=== PATIENT | female | born 1955 | race Two or more races ===

== ENCOUNTER 2024-03-25 21:06 | Inpatient (IN) | payer OTHER ==
[2024-03-25 22:11] VITALS: BMI 35.2
[2024-03-26] MEDS ORDERED: BENZOCAINE/MENTHOL (CHLORASEPTIC ) LOZENGE MM PRN (00:49)
[2024-03-26] MEDS ORDERED: MAGNESIUM HYDROX 2400MG/30ML ORAL SUSPENSION 30 ML CUP PO PRN (00:49)
[2024-03-26] MEDS ORDERED: NICOTINE POLACRILEX 2 MG GUM BUC PRN (00:49)
[2024-03-26] MEDS ORDERED: NALOXONE HCL (KLOXXADO) 8 MG SPRAY NS PRN (00:49)
[2024-03-26] MEDS ORDERED: ACETAMINOPHEN 325 MG TABLET (FP) PO PRN (00:49)
[2024-03-26] MEDS ORDERED: NALOXONE HCL 0.4 MG/ML VIAL IM PRN (00:49)
[2024-03-26] MEDS ORDERED: guaiFENesin 600 MG TABLET.ER (FP) PO PRN (00:49)
[2024-03-26] MEDS ORDERED: BISMUTH SUBSALICYLATE 524 MG/30 ML PO PRN (00:49)
[2024-03-26] MEDS ORDERED: MAG HYDROX/AL HYDROX/SIMETH 30 ML UNIT-DOSE CUP PO PRN (00:49)
[2024-03-26] MEDS ORDERED: LOPERAMIDE HCL 2 MG CAPSULE PO PRN (00:49)
[2024-03-26] MEDS ORDERED: POLYETHYLENE GLYCOL (HEALTHYLAX) 3350 17 GM PACKET PO PRN (00:49)
[2024-03-26] MEDS ORDERED: BENZONATATE 200 MG CAPSULE PO PRN (00:49)
[2024-03-26] MEDS ORDERED: IBUPROFEN 400 MG TABLET (FP) PO PRN (00:49)
[2024-03-26] MEDS ORDERED: ONDANSETRON *ODT* 4 MG TABLET SL PRN (00:49)
[2024-03-26] MEDS ORDERED: cloNIDine HCL 0.1 MG TABLET ONE (00:57)
[2024-03-26] MEDS ORDERED: ACETAMINOPHEN 325 MG TABLET (FP) ONE (00:58)
[2024-03-26] MEDS: cloNIDine HCL 0.1 MG TABLET PO ONE ×2 (02:10→06:00)
[2024-03-26] MEDS: methaDONE HCL 10 MG TABLET (FOR DETOX USE ONLY) PO ONE (09:49)
[2024-03-26] MEDS: cloNIDine HCL 0.1 MG TABLET PO PRN (09:50)
[2024-03-26] MEDS: IBUPROFEN 600 MG TABLET (FP) PO PRN (09:51)
[2024-03-26] MEDS: PRENATAL VITAMINS W/ FOLIC ACID TABLET (FP) PO SCH (09:52)
[2024-03-26] MEDS: NICOTINE 14 MG/24 HOURS TOPICAL PATCH TD SCH (09:55)
[2024-03-26 14:25] LABS: HEMOGLOBIN 12.5 GM/dL (10.7-15.3); MCH 27.4 pg (25.7-33.7); MCHC 34.6 g/dl (32.0-36.0); MEAN CELL VOLUME 79.2 fl (80-96); PLATELET COUNT 244 10^3/uL (134-434); RBC 4.55 M/mm3 (3.60-5.2); RDW 16.1 % (11.6-15.6); WHITE BLOOD COUNT 5.1 K/mm3 (4.0-10.0)
[2024-03-26 14:53] LABS: CHLORIDE 92 mmol/L (98-107); SODIUM 131 mmol/L (136-145)
[2024-03-26 14:56] LABS: ALBUMIN 3.8 g/dl (3.4-5.0); CALCIUM 9.6 mg/dL (8.5-10.1); CO2 31 mmol/L (21-32)
[2024-03-26 14:57] LABS: BLOOD UREA NITROGEN 11.5 mg/dL (7-18); GLUCOSE,RANDOM 120 mg/dL (74-106)
[2024-03-26 14:59] LABS: SGOT/AST 29 U/L (15-37); SGPT/ALT 14 U/L (13-61)
[2024-03-26 15:01] LABS: ALK PHOS 62 U/L (45-117); BILIRUBIN,TOTAL 0.8 mg/dL (0.2-1); TOT PROT 8.4 g/dl (6.4-8.2)
[2024-03-26 15:08] LABS: ANION GAP 9 mmol/L (4-13); POTASSIUM 2.9 mmol/L (3.5-5.1)
[2024-03-26] MEDS: POTASSIUM CHLORIDE ORAL LIQUID 20 MEQ/15 ML PO ONE ×2 (15:45→22:36)
[2024-03-26] MEDS: FERROUS SO4 325 MG TABLET (FP) PO SCH (15:45)
[2024-03-26] MEDS: LOSARTAN POTASSIUM 50 MG TABLET PO SCH (15:45)
[2024-03-26] MEDS: PANTOPRAZOLE 40 MG TABLET PO SCH (15:45)
[2024-03-26 16:56] VITALS: RESP 16; TEMP 99.3
[2024-03-26] MEDS: THIAMINE 100 MG TABLET PO SCH (22:39)
[2024-03-26] MEDS: MELATONIN 5 MG TABLETS PO SCH (22:40)
[2024-03-26 23:40] VITALS: BP 161/104; PULSE 87
[2024-03-28] MEDS ORDERED: methaDONE HCL 10 MG TABLET (FOR DETOX USE ONLY) PO ONE (10:00)
== END 2024-03-27 04:00 | disposition short-term general hospital (02) | DRG 897 ==
LOC: YASAS 21:06 → UNDOADMIN 03-26 01:42 → Y3N 03-26 01:42
PROVIDERS: ADMIT Allergy & Immunology; ATTEND Surgery
PROC: HZ2ZZZZ Detoxification Services for Substance Abuse Treatment (ICD-10-PCS; principal; 2024-03-26)
DX: F11.23 Opioid dependence with withdrawal (principal); F14.20 Cocaine dependence, uncomplicated; F17.210 Nicotine dependence, cigarettes, uncomplicated; F32.A Depression, unspecified; E87.5 Hyperkalemia; I10 Essential (primary) hypertension; M25.561 Pain in right knee; M25.562 Pain in left knee; R26.89 Other abnormalities of gait and mobility; Z99.89 Dependence on other enabling machines and devices
CPT/HCPCS: 36415; 80053; 80305; 80307; 82962; 85027; 86593; 86780; 93005; 93010

== ENCOUNTER 2024-03-27 00:41 | Inpatient (IN) | payer OTHER ==
[2024-03-27] MEDS ORDERED: MAGNESIUM SULFATE IN WATER 2 GM/50 ML IVPB IVPB ONE (01:28)
[2024-03-27] MEDS: MAGNESIUM SULFATE IN WATER 2 GM/50 ML IVPB IVPB ONE (01:56)
[2024-03-27 02:01] LABS: VENOUS BASE EXCESS 8.2 mmol/L (-2-2); VENOUS O2 SATURATION 60.1 % (70-80); VENOUS PCO2 45.5 mmHg (38-52); VENOUS PH 7.477 (7.310-7.410)
[2024-03-27 02:02] LABS: BASO % 0.4 % (0-2.0); EOS % 0.2 % (0-4.5); HEMATOCRIT 38.3 % (32.4-45.2); HEMOGLOBIN 13.4 GM/dL (10.7-15.3); LYMPH % 24.3 % (8-40); MCH 27.7 pg (25.7-33.7); MCHC 35.1 g/dl (32.0-36.0); MEAN CELL VOLUME 78.8 fl (80-96); MEAN PLT VOLUME 7.2 fl (7.5-11.1); MONO % 11.1 % (3.8-10.2); PLATELET COUNT 240 10^3/uL (134-434); RBC 4.86 M/mm3 (3.60-5.2); RDW 16.5 % (11.6-15.6)
[2024-03-27 02:14] LABS: INR 1.17 (0.83-1.09); PROTHROMBIN TIME (PATIENT) 13.4 SEC (9.7-13.0)
[2024-03-27 02:17] LABS: ACTIVATED PTT 31.6 SECONDS (25.2-36.5)
[2024-03-27 02:42] LABS: ALBUMIN 3.7 g/dl (3.4-5.0); BILIRUBIN,TOTAL 0.8 mg/dL (0.2-1); BLOOD UREA NITROGEN 14.4 mg/dL (7-18); CREATININE 1.2 mg/dL (0.55-1.3); POTASSIUM 3.5 mmol/L (3.5-5.1); TOT PROT 8.3 g/dl (6.4-8.2)
[2024-03-27] MEDS ORDERED: cloNIDine HCL 0.1 MG TABLET PO PRN (04:24)
[2024-03-27] MEDS ORDERED: BUPRENORPHINE/NALOXONE 8 MG/2 MG FILM PACKET ONE (05:47)
[2024-03-27] MEDS: BUPRENORPHINE/NALOXONE 8 MG/2 MG FILM PACKET SL SCH (05:52)
[2024-03-27] MEDS ORDERED: PANTOPRAZOLE 40 MG TABLET PO ONE (06:20)
[2024-03-27] MEDS: PANTOPRAZOLE 40 MG TABLET PO SCH (06:22)
[2024-03-27 07:33] LABS: BASO % 0.6 % (0-2.0); EOS % 0.2 % (0-4.5); HEMATOCRIT 40.5 % (32.4-45.2); LYMPH % 27.2 % (8-40); MCH 27.5 pg (25.7-33.7); MCHC 34.7 g/dl (32.0-36.0); MEAN CELL VOLUME 79.5 fl (80-96); MEAN PLT VOLUME 7.6 fl (7.5-11.1); MONO % 9.9 % (3.8-10.2); NEUT % 62.1 % (42.8-82.8); PLATELET COUNT 277 10^3/uL (134-434); RBC 5.09 M/mm3 (3.60-5.2); RDW 16.2 % (11.6-15.6); WHITE BLOOD COUNT 5.8 K/mm3 (4.0-10.0)
[2024-03-27 07:51] LABS: MAGNESIUM 2.6 mg/dL (1.8-2.4)
[2024-03-27 07:55] LABS: PHOSPHOROUS 3.2 mg/dL (2.5-4.9)
[2024-03-27] MEDS ORDERED: FOLIC ACID 1 MG TABLET (FP) ONE (09:34)
[2024-03-27] MEDS ORDERED: LOSARTAN POTASSIUM 50 MG TABLET ONE (09:34)
[2024-03-27] MEDS ORDERED: THIAMINE 100 MG TABLET ONE (09:34)
[2024-03-27] MEDS ORDERED: FERROUS SO4 325 MG TABLET (FP) ONE (09:35)
[2024-03-27] MEDS ORDERED: ENOXAPARIN NA (PORCINE) 40 MG/0.4 ML DISP.SYRIN SQ ONE (09:35)
[2024-03-27] MEDS: THIAMINE 100 MG TABLET PO SCH (09:43)
[2024-03-27] MEDS: LOSARTAN POTASSIUM 50 MG TABLET PO SCH (09:43)
[2024-03-27] MEDS: ENOXAPARIN NA (PORCINE) 40 MG/0.4 ML DISP.SYRIN SQ SCH (09:43)
[2024-03-27] MEDS: FERROUS SO4 325 MG TABLET (FP) PO SCH (09:43)
[2024-03-27] MEDS: FOLIC ACID 1 MG TABLET (FP) PO SCH (09:43)
[2024-03-27 11:11] LABS: HIV INTERPRETATION NEGATIVE (NEGATIVE)
[2024-03-27] MEDS ORDERED: hydrALAZINE HCL 25 MG TABLET (FP) ONE (11:39)
[2024-03-27] MEDS: hydrALAZINE HCL 25 MG TABLET (FP) PO ONE (11:42)
[2024-03-27] MEDS: cloNIDine HCL 0.1 MG TABLET PO PRN (13:25)
[2024-03-27] MEDS: ACETAMINOPHEN 325 MG TABLET (FP) PO PRN (17:47)
[2024-03-27 21:35] LABS: OPIATES, URI NEGATIVE (NEGATIVE); URINE BARBITURATES NEGATIVE (NEGATIVE)
[2024-03-27 21:37] LABS: PHENCYCLIDINE,URINE NEGATIVE (NEGATIVE); URINE AMPHETAMINES NEGATIVE (NEGATIVE); URINE BENZODIAZEPINES NEGATIVE (NEGATIVE)
[2024-03-27 21:38] LABS: COCAINE, UR POSITIVE (NEGATIVE); METHADONE, UR POSITIVE (NEGATIVE)
[2024-03-27] MEDS: MELATONIN 1 MG TABLET PO ONE (22:15)
[2024-03-28 07:38] LABS: POTASSIUM 3.3 mmol/L (3.5-5.1)
[2024-03-28 07:46] LABS: BASO % 0.7 % (0-2.0); EOS % 0.8 % (0-4.5); HEMATOCRIT 39.4 % (32.4-45.2); HEMOGLOBIN 13.4 GM/dL (10.7-15.3); LYMPH % 34.9 % (8-40); MCH 27.2 pg (25.7-33.7); MEAN PLT VOLUME 7.4 fl (7.5-11.1); MONO % 11.4 % (3.8-10.2); NEUT % 52.2 % (42.8-82.8); PLATELET COUNT 246 10^3/uL (134-434); RBC 4.92 M/mm3 (3.60-5.2); RDW 15.6 % (11.6-15.6); WHITE BLOOD COUNT 4.4 K/mm3 (4.0-10.0)
[2024-03-28 07:55] LABS: BLOOD UREA NITROGEN 23.8 mg/dL (7-18); CALCIUM 10.1 mg/dL (8.5-10.1)
[2024-03-28 07:58] LABS: CREATININE 1.2 mg/dL (0.55-1.3)
[2024-03-28 09:24] LABS: MAGNESIUM 2.2 mg/dL (1.8-2.4)
[2024-03-28] MEDS ORDERED: metoPROLOL SUCCINATE 25 MG TAB.SR.24H (FP) PO SCH (10:00)
[2024-03-28] MEDS: hydrALAZINE HCL 25 MG TABLET (FP) PO SCH (10:03)
[2024-03-28] MEDS: POTASSIUM CHLORIDE ORAL LIQUID 20 MEQ/15 ML PO ONE (10:04)
[2024-03-28 16:16] VITALS: BMI 22.4
[2024-03-29] MEDS ORDERED: methaDONE HCL 10 MG TABLET (FOR DETOX USE ONLY) PO ONE (10:00)
[2024-03-29 10:36] LABS: POTASSIUM 3.7 mmol/L (3.5-5.1)
[2024-03-29 10:37] LABS: CALCIUM 9.5 mg/dL (8.5-10.1)
[2024-03-29 10:38] LABS: BLOOD UREA NITROGEN 30.6 mg/dL (7-18)
[2024-03-29 10:41] LABS: CREATININE 1.2 mg/dL (0.55-1.3)
[2024-03-29] MEDS: hydrALAZINE HCL 50 MG TABLET (FP) PO SCH (14:35)
[2024-03-29] MEDS: LORazepam 1 MG TABLET PO PRN (16:30)
[2024-03-29] MEDS: ATORVASTATIN CA 10 MG TABLET (FP) PO SCH (21:57)
[2024-03-30 05:01] VITALS: RESP 18
[2024-03-31] MEDS ORDERED: methaDONE HCL 10 MG TABLET (FOR DETOX USE ONLY) PO ONE (10:00)
[2024-03-31 12:23] VITALS: BP 125/81; PULSE 103; TEMP 98.6
== END 2024-03-31 16:39 | disposition other institution (70) | DRG 313 ==
LOC: JER 00:41 → JERBED 04:06 → J7W 12:02 → OBSVTOIN 03-28 09:01
PROVIDERS: ADMIT Internal Medicine; ATTEND Internal Medicine
DX: R07.89 Other chest pain (principal); E87.1 Hypo-osmolality and hyponatremia; E87.6 Hypokalemia; R00.2 Palpitations; F11.10 Opioid abuse, uncomplicated; I10 Essential (primary) hypertension; E78.5 Hyperlipidemia, unspecified; F32.9 Major depressive disorder, single episode, unspecified; K21.9 Gastro-esophageal reflux disease without esophagitis
CPT/HCPCS: 36415; 70450-TC; 71045-TC-FY; 80048; 80053; 80061; 80307; 82803; 83735; 83880; 83930; 83935; 84100; 84300; 84439; 84443; 84484; 85025; 85610; 85730; 87389; 93005; 93010; 93306-TC; 99285-25; G0378